=== PATIENT | male | born 1960 | race Two or more races ===

== ENCOUNTER 2022-06-11 10:47 | Emergency (ER) | payer MEDICARE, OTHER ==
[~2022-06-11] VITALS: Ht 182.9 cm; Wt 90.9 kg
[~2022-06-11 10:47] MED LIST: AMOX-462 PO; ASPI-1444 PO; ATOR40TA28 PO; CLOP75TA60 PO; DULO20CA71 PO; HYDR30CR39 TP; IBUP100O27 PO; INSLAN SQ; INSNOV SQ; METF-1211 PO; METO-296 PO; METO25 PO; MORP15 PO; OMEP20 PO; OXYC30TA2 PO; SANTO TP; SIMV-259 PO; TRAZ-257 PO; TYL3 PO
[2022-06-11] MEDS ORDERED: SODIUM CHLORIDE 0.9% 1,000 ML IV ONE (12:30)
[2022-06-11 12:43] LABS: BASOPHILS % (AUTO) 0.8 % (0.0-2.0); HEMATOCRIT 43.8 % (41-53); HEMOGLOBIN 14.9 g/dL (13.5-17.5); LYMPHOCYTES # (AUTO) 1.7 K/uL (1.0-4.8); LYMPHOCYTES % (AUTO) 15.6 % (22.0-44.0); MEAN CORPUSCULAR HEMOGLOBIN 30.2 pg (26.0-34.0); MEAN CORPUSCULAR HGB CONC 33.9 G/dL (31.0-37.0); MEAN CORPUSCULAR VOLUME 89 fL (80-100); MONOCYTES # (AUTO) 0.8 K/uL (0.1-1.0); NEUTROPHILS # (AUTO) 8.2 K/uL (1.8-7.7); NEUTROPHILS % (AUTO) 75.6 % (40.0-70.0); PLATELET COUNT (AUTO) 259 K/uL (150-450); RED BLOOD CELL COUNT(AUTO) 4.92 MIL/uL (4.50-5.90); RED CELL DISTRIBUTION WIDTH 12.8 % (11.5-14.5)
[2022-06-11 12:55] LABS: ANION GAP 7 mmol/L (8-16); CALCIUM, TOTAL 8.9 mg/dL (8.8-10.5); CARBON DIOXIDE 27 mmol/L (22-29); CHLORIDE 99 mmol/L (98-107); CREATININE 0.86 mg/dL (0.60-1.30); GLOMERULAR FILTR. RATE CALC > 60 mL/min (>60); GLUCOSE,RANDOM 385 mg/dL (70-110); POTASSIUM 4.8 mmol/L (3.5-5.1); SODIUM SERUM 133 mmol/L (136-145); UREA NITROGEN, BLOOD 15 mg/dL (7-18)
[2022-06-11 13:09] LABS: ALANINE AMINOTRANSFERASE 53 U/L (12-78); ALBUMIN 3.8 g/dL (3.4-5.0); ALKALINE PHOSPHATASE 128 U/L (46-116); ASPARTATE AMINOTRANSFERASE 34 U/L (15-37); BILIRUBIN,TOTAL 0.8 mg/dL (0.1-1.0); TOTAL PROTEIN, SERUM 7.7 g/dL (6.4-8.2)
[2022-06-11] MEDS ORDERED: INSULIN REGULAR, HUMAN 100 UNITS/ML IVP ONE (13:15)
[2022-06-11 13:56] VITALS: BP 158/89
[2022-06-11 14:11] LABS: GLUCOMETER DEV NAME(LOC) ERT.5; GLUCOSE,POINT OF CARE 303 MG/DL (70-110)
== END 2022-06-11 14:15 | disposition home or self-care (01) ==
LOC: EMS 10:47
DX: E11.65 Type 2 diabetes mellitus with hyperglycemia (principal); E11.40 Type 2 diabetes mellitus with diabetic neuropathy, unspecified; F32.A Depression, unspecified; E78.00 Pure hypercholesterolemia, unspecified; I10 Essential (primary) hypertension; Z89.512 Acquired absence of left leg below knee; Z89.511 Acquired absence of right leg below knee
CPT/HCPCS: 99283; 96374; 96361; 80053; 82962; 85025; 36415; J1815; J7030

== ENCOUNTER 2023-03-26 19:17 | Inpatient (IN) | payer MEDICARE, MEDICAID ==
[~2023-03-26] VITALS: Ht 175.3 cm; Wt 92.1 kg
[2023-03-26 20:31] LABS: GLUCOMETER DEV NAME(LOC) ER.6; GLUCOSE,POINT OF CARE 188 MG/DL (70-110)
[2023-03-26 20:41] LABS: AMPHET/METH SCREEN,URINE NEGATIVE (NEGATIVE); BARBITURATE SCREEN, URINE NEGATIVE (NEGATIVE); BENZODIAZEPINES SCREEN,URINE NEGATIVE (NEGATIVE); CANNABINOID SCREEN,URINE NEGATIVE (NEGATIVE); COCAINE SCREEN,URINE NEGATIVE (NEGATIVE); METHADONE SCREEN, URINE NEGATIVE (NEGATIVE); OPIATE SCREEN,URINE POSITIVE (NEGATIVE); PHENCYCLIDINE SCREEN,URINE NEGATIVE (NEGATIVE)
[2023-03-26 20:41] LABS: BASOPHILS % (AUTO) 0.8 % (0.0-2.0); EOSINOPHILS % (AUTO) 0.7 % (1.0-6.0); HEMOGLOBIN 14.2 g/dL (13.5-17.5); LYMPHOCYTES # (AUTO) 2.2 K/uL (1.0-4.8); MEAN CORPUSCULAR HEMOGLOBIN 29.3 pg (26.0-34.0); MEAN CORPUSCULAR HGB CONC 33.1 G/dL (31.0-37.0); MEAN CORPUSCULAR VOLUME 89 fL (80-100); MONOCYTES # (AUTO) 0.8 K/uL (0.1-1.0); MONOCYTES % (AUTO) 7.5 % (2.0-9.0); NEUTROPHILS # (AUTO) 7.5 K/uL (1.8-7.7); PLATELET COUNT (AUTO) 245 K/uL (150-450); RED BLOOD CELL COUNT(AUTO) 4.85 MIL/uL (4.50-5.90); RED CELL DISTRIBUTION WIDTH 13.2 % (11.5-14.5)
[2023-03-26 20:54] LABS: ANION GAP 8 mmol/L (8-16); CALCIUM, TOTAL 9.1 mg/dL (8.8-10.5); CARBON DIOXIDE 27 mmol/L (22-29); CHLORIDE 103 mmol/L (98-107); CREATININE 0.84 mg/dL (0.60-1.30); GLOMERULAR FILTR. RATE CALC > 60 mL/min (>60); GLUCOSE,RANDOM 218 mg/dL (70-110); POTASSIUM 3.4 mmol/L (3.5-5.1); SODIUM SERUM 138 mmol/L (136-145)
[2023-03-26 21:00] LABS: ALANINE AMINOTRANSFERASE 29 U/L (12-78); ALBUMIN 3.7 g/dL (3.4-5.0); ALKALINE PHOSPHATASE 110 U/L (46-116); ASPARTATE AMINOTRANSFERASE 28 U/L (15-37); BILIRUBIN,TOTAL 0.5 mg/dL (0.1-1.0); TOTAL PROTEIN, SERUM 7.8 g/dL (6.4-8.2)
[2023-03-26 21:06] LABS: COVID AG,FIA SOURCE NASOPHARYNGEAL
[2023-03-26] MEDS ORDERED: OxyCODONE HCL 10 MG ER TABLET PO ONE (21:30)
[2023-03-26] MEDS ORDERED: OxyCODONE HCL 20 MG ER TABLET PO ONE (21:30)
[2023-03-26] MEDS ORDERED: LORazepam 2 MG TABLET PO ONE (23:00)
[2023-03-26] MEDS ORDERED: HALOPERIDOL 5 MG TABLET PO ONE (23:00)
[2023-03-26] MEDS ORDERED: DiphenhydrAMINE HCL 25 MG CAPSULE PO ONE (23:00)
[2023-03-27 01:40] VITALS: BP 140/87
[2023-03-27] MEDS: ZOLPIDEM TARTRATE 10 MG TABLET PO PRN ×2 (01:50→23:11)
[2023-03-27] MEDS ORDERED: MAG HYDROX/AL HYDROX/SIMETH ES 30 ML SUSPENSION UDCUP PO PRN (06:30)
[2023-03-27] MEDS ORDERED: MAGNESIUM HYDROXIDE SUSPENSION 30 ML UDCUP PO PRN (06:30)
[2023-03-27] MEDS ORDERED: CloNIDine HCL 0.1 MG TABLET PO PRN (06:30)
[2023-03-27] MEDS ORDERED: GuaiFENesin/D-METHORPHAN [SUGAR-FREE] 200-20MG/10 ML SYRUP UDCUP PO PRN (06:30)
[2023-03-27] MEDS ORDERED: PETROLATUM,WHITE 28 GM JELLY TP PRN (06:30)
[2023-03-27] MEDS ORDERED: DOCUSATE SODIUM 100 MG CAPSULE PO PRN (06:30)
[2023-03-27] MEDS ORDERED: DEXTROSE 50%-WATER 25 GM/50 ML SYRINGE IVP PRN (06:30)
[2023-03-27] MEDS ORDERED: ALBUTEROL SULFATE HFA 90 MCG/PUFF 8 GM INHALER IH PRN (06:30)
[2023-03-27] MEDS ORDERED: NICOTINE 14 MG/24 HOUR PATCH TD PRN (06:30)
[2023-03-27] MEDS ORDERED: ONDANSETRON HCL 4 MG TABLET PO PRN (06:30)
[2023-03-27] MEDS: INSULIN LISPRO 100 UNITS/ML SQ PRN ×3 (06:33→22:40)
[2023-03-27 06:36] LABS: GLUCOMETER DEV NAME(LOC) 3E.C; GLUCOSE,POINT OF CARE 292 MG/DL (70-110)
[2023-03-27] MEDS ORDERED: OMEPRAZOLE 20 MG CAPSULE PO SCH (09:00)
[2023-03-27 09:13] VITALS: BP 157/79
[2023-03-27] MEDS: SULFAMETHOX/TRIMETH DS 800-160 MG/TABLET PO SCH ×2 (09:58→16:27)
[2023-03-27] MEDS: CLOPIDOGREL BISULFATE 75 MG TABLET PO SCH (09:58)
[2023-03-27] MEDS: CEPHALEXIN MONOHYDRATE 500 MG CAPSULE PO SCH ×3 (09:59→16:27)
[2023-03-27] MEDS: ASPIRIN 81 MG DR TABLET PO SCH (09:59)
[2023-03-27] MEDS: PANTOPRAZOLE SODIUM 40 MG DR TABLET PO SCH (10:01)
[2023-03-27] MEDS: IBUPROFEN 400 MG TABLET PO PRN ×2 (10:01→21:09)
[2023-03-27 11:11] LABS: GLUCOMETER DEV NAME(LOC) 3E.C; GLUCOSE,POINT OF CARE 319 MG/DL (70-110)
[2023-03-27] MEDS: LORazepam 2 MG TABLET PO PRN ×3 (11:24→23:11)
[2023-03-27] MEDS: OxyCODONE HCL 10 MG ER TABLET PO SCH (13:15)
[2023-03-27 17:06] LABS: GLUCOMETER DEV NAME(LOC) 3E.C; GLUCOSE,POINT OF CARE 461 MG/DL (70-110)
[2023-03-27] MEDS ORDERED: INSULIN LISPRO 100 UNITS/ML SQ ONE (17:15)
[2023-03-27] MEDS: DULoxetine HCL 60 MG CAPSULE PO SCH (18:06)
[2023-03-27] MEDS: ATORVASTATIN CALCIUM 40 MG TABLET PO SCH (20:41)
[2023-03-27] MEDS: TraZODone HCL 100 MG TABLET PO SCH (20:41)
[2023-03-27] MEDS ORDERED: SIMVASTATIN 10 MG TABLET PO SCH (21:00)
[2023-03-27 21:06] VITALS: BP 169/109
[2023-03-27 22:51] LABS: GLUCOMETER DEV NAME(LOC) 3E.C; GLUCOSE,POINT OF CARE 382 MG/DL (70-110)
[2023-03-28 05:51] LABS: GLUCOMETER DEV NAME(LOC) 3E.C; GLUCOSE,POINT OF CARE 300 MG/DL (70-110)
[2023-03-28] MEDS: INSULIN LISPRO 100 UNITS/ML SQ PRN ×2 (07:02→21:01)
[2023-03-28 07:18] LABS: HEMOGLOBIN A1C 9.6 % (3.8-5.6)
[2023-03-28 07:20] LABS: CHOL/HDL RATIO 3.4 (4.2-7.3)
[2023-03-28] MEDS: CEPHALEXIN MONOHYDRATE 500 MG CAPSULE PO SCH ×3 (08:22→16:34)
[2023-03-28] MEDS: SULFAMETHOX/TRIMETH DS 800-160 MG/TABLET PO SCH ×2 (08:23→16:34)
[2023-03-28] MEDS: DULoxetine HCL 60 MG CAPSULE PO SCH (08:23)
[2023-03-28] MEDS: CLOPIDOGREL BISULFATE 75 MG TABLET PO SCH (08:23)
[2023-03-28] MEDS: ASPIRIN 81 MG DR TABLET PO SCH (08:23)
[2023-03-28] MEDS: PANTOPRAZOLE SODIUM 40 MG DR TABLET PO SCH (08:25)
[2023-03-28] MEDS: MULTIVITAMINS WITH MINERALS, THERAPEUTIC TABLET PO SCH (08:25)
[2023-03-28 08:35] VITALS: BP 172/92
[2023-03-28] MEDS: OxyCODONE HCL 10 MG ER TABLET PO SCH (09:44)
[2023-03-28 10:12] LABS: POTASSIUM 4.1 mmol/L (3.5-5.1)
[2023-03-28 11:26] LABS: GLUCOMETER DEV NAME(LOC) 3E.I 2; GLUCOSE,POINT OF CARE 468 MG/DL (70-110)
[2023-03-28] MEDS ORDERED: INSULIN GLARGINE,HUM.REC.ANLOG 100 UNITS/ML SQ ONE (11:30)
[2023-03-28] MEDS ORDERED: OXYC15TA2 PO (11:46)
[2023-03-28] MEDS ORDERED: INSU100V12 SQ (11:46)
[2023-03-28] MEDS ORDERED: DULA1.5P SQ (11:46)
[2023-03-28] MEDS ORDERED: PREG50CA63 PO (11:46)
[2023-03-28] MEDS ORDERED: AMLO5TAB66 PO (11:46)
[2023-03-28] MEDS ORDERED: OXYC9CAP PO (11:46)
[2023-03-28] MEDS ORDERED: METF-1185 PO (11:46)
[2023-03-28] MEDS ORDERED: DULO-113 PO (11:46)
[2023-03-28] MEDS: LORazepam 2 MG TABLET PO PRN ×2 (12:19→19:45)
[2023-03-28 16:20] LABS: GLUCOMETER DEV NAME(LOC) 3E.I 2; GLUCOSE,POINT OF CARE 540 MG/DL (70-110)
[2023-03-28 16:35] VITALS: BP 191/102
[2023-03-28] MEDS: IBUPROFEN 400 MG TABLET PO PRN (16:36)
[2023-03-28 16:45] LABS: GLUCOMETER DEV NAME(LOC) 3E.I 2; GLUCOSE,POINT OF CARE 473 MG/DL (70-110)
[2023-03-28] MEDS ORDERED: INSULIN LISPRO 100 UNITS/ML SQ ONE (17:00)
[2023-03-28] MEDS: METOPROLOL TARTRATE 25 MG TABLET PO SCH (18:16)
[2023-03-28 20:00] VITALS: BP 150/80
[2023-03-28] MEDS: TraZODone HCL 100 MG TABLET PO SCH (20:30)
[2023-03-28] MEDS: ATORVASTATIN CALCIUM 40 MG TABLET PO SCH (20:30)
[2023-03-28] MEDS ORDERED: INSULIN GLARGINE,HUM.REC.ANLOG 100 UNITS/ML SQ SCH (21:00)
[2023-03-28 21:01] LABS: GLUCOMETER DEV NAME(LOC) 3E.C; GLUCOSE,POINT OF CARE 358 MG/DL (70-110)
[2023-03-28] MEDS: ACETAMINOPHEN 325 MG TABLET PO PRN (21:41)
[2023-03-28] MEDS: ZOLPIDEM TARTRATE 10 MG TABLET PO PRN (21:41)
[2023-03-28 21:45] VITALS: BP 165/95
[2023-03-28 22:21] VITALS: BP 165/95
[2023-03-29 00:50] VITALS: BP 160/87
[2023-03-29] MEDS: LORazepam 2 MG TABLET PO PRN ×2 (00:50→23:14)
[2023-03-29] MEDS: IBUPROFEN 600 MG TABLET PO PRN ×3 (00:50→19:30)
[2023-03-29 05:45] LABS: APPEARANCE,URINE CLEAR (CLEAR); BILIRUBIN,URINE NEGATIVE (NEGATIVE); GLUCOSE, URINE (UA) NEGATIVE (NEGATIVE); KETONES,URINE NEGATIVE (NEGATIVE); LEUKOCYTE ESTERASE ,URINE NEGATIVE (NEGATIVE); NITRATE,URINE NEGATIVE (NEGATIVE); OCCULT BLOOD,URINE NEGATIVE (NEGATIVE); PH,URINE 5.5 (5.0-8.0); PROTEIN,URINE 30-70 mg/dL (NEGATIVE); SPECIFIC GRAVITIY, URINE 1.011 (1.003-1.030); UROBILINOGEN,URINE <=1.0 mg/dL (<=1.0)
[2023-03-29 05:46] LABS: BACTERIA,URINE None Seen /HPF (None Seen); RBC,URINE None Seen /HPF (0-2); SQUAMOUS EPITHELIAL CELL,UR None Seen /LPF (None Seen); WBC,URINE None Seen /HPF (0-5)
[2023-03-29 05:48] LABS: AMPHET/METH SCREEN,URINE NEGATIVE (NEGATIVE); BARBITURATE SCREEN, URINE NEGATIVE (NEGATIVE); BENZODIAZEPINES SCREEN,URINE NEGATIVE (NEGATIVE); CANNABINOID SCREEN,URINE NEGATIVE (NEGATIVE); COCAINE SCREEN,URINE NEGATIVE (NEGATIVE); METHADONE SCREEN, URINE NEGATIVE (NEGATIVE); OPIATE SCREEN,URINE NEGATIVE (NEGATIVE); PHENCYCLIDINE SCREEN,URINE NEGATIVE (NEGATIVE)
[2023-03-29 06:26] LABS: GLUCOMETER DEV NAME(LOC) 3E.C; GLUCOSE,POINT OF CARE 294 MG/DL (70-110)
[2023-03-29] MEDS: MetFORMIN HCL 850 MG TABLET PO SCH ×3 (07:04→16:35)
[2023-03-29] MEDS: ASPIRIN 81 MG DR TABLET PO SCH (08:37)
[2023-03-29] MEDS: PANTOPRAZOLE SODIUM 40 MG DR TABLET PO SCH (08:38)
[2023-03-29] MEDS: MULTIVITAMINS WITH MINERALS, THERAPEUTIC TABLET PO SCH (08:38)
[2023-03-29] MEDS: OxyCODONE HCL 10 MG ER TABLET PO SCH (08:38)
[2023-03-29] MEDS: CLOPIDOGREL BISULFATE 75 MG TABLET PO SCH (08:38)
[2023-03-29] MEDS: SULFAMETHOX/TRIMETH DS 800-160 MG/TABLET PO SCH ×2 (08:38→16:01)
[2023-03-29] MEDS: CEPHALEXIN MONOHYDRATE 500 MG CAPSULE PO SCH ×3 (08:38→16:01)
[2023-03-29] MEDS: METOPROLOL TARTRATE 25 MG TABLET PO SCH ×2 (08:38→16:01)
[2023-03-29] MEDS: PREGABALIN 50 MG CAPSULE PO SCH ×2 (08:38→16:01)
[2023-03-29] MEDS: DULoxetine HCL 60 MG CAPSULE PO SCH (08:39)
[2023-03-29] MEDS: AmLODIPine BESYLATE 2.5 MG TABLET PO SCH (08:39)
[2023-03-29] MEDS: INSULIN GLARGINE,HUM.REC.ANLOG 100 UNITS/ML SQ SCH ×2 (08:59→16:48)
[2023-03-29] MEDS ORDERED: AmLODIPine BESYLATE 5 MG TABLET PO SCH (09:00)
[2023-03-29 09:03] VITALS: BP 129/77
[2023-03-29 11:26] LABS: GLUCOMETER DEV NAME(LOC) 3E.C; GLUCOSE,POINT OF CARE 323 MG/DL (70-110)
[2023-03-29] MEDS: INSULIN LISPRO 100 UNITS/ML SQ PRN ×3 (12:00→21:04)
[2023-03-29 17:01] LABS: GLUCOMETER DEV NAME(LOC) 3E.C; GLUCOSE,POINT OF CARE 268 MG/DL (70-110)
[2023-03-29 19:27] VITALS: BP 148/92
[2023-03-29 20:56] LABS: GLUCOMETER DEV NAME(LOC) 3E.C; GLUCOSE,POINT OF CARE 259 MG/DL (70-110)
[2023-03-29] MEDS: ATORVASTATIN CALCIUM 40 MG TABLET PO SCH (21:06)
[2023-03-29] MEDS: TraZODone HCL 100 MG TABLET PO SCH (21:07)
[2023-03-29] MEDS: ZOLPIDEM TARTRATE 10 MG TABLET PO PRN (22:05)
[2023-03-30 06:31] LABS: GLUCOMETER DEV NAME(LOC) 3E.C; GLUCOSE,POINT OF CARE 272 MG/DL (70-110)
[2023-03-30 06:32] VITALS: BP 148/86
[2023-03-30] MEDS: MetFORMIN HCL 850 MG TABLET PO SCH ×3 (06:33→16:27)
[2023-03-30] MEDS: IBUPROFEN 600 MG TABLET PO PRN ×2 (06:34→14:46)
[2023-03-30] MEDS: INSULIN LISPRO 100 UNITS/ML SQ PRN ×4 (06:34→21:19)
[2023-03-30 08:00] VITALS: BP 121/70
[2023-03-30] MEDS: CEPHALEXIN MONOHYDRATE 500 MG CAPSULE PO SCH ×3 (08:32→16:28)
[2023-03-30] MEDS: CLOPIDOGREL BISULFATE 75 MG TABLET PO SCH (08:32)
[2023-03-30] MEDS: SULFAMETHOX/TRIMETH DS 800-160 MG/TABLET PO SCH ×2 (08:33→16:27)
[2023-03-30] MEDS: METOPROLOL TARTRATE 25 MG TABLET PO SCH ×2 (08:33→16:28)
[2023-03-30] MEDS: AmLODIPine BESYLATE 2.5 MG TABLET PO SCH (08:33)
[2023-03-30] MEDS: ASPIRIN 81 MG DR TABLET PO SCH (08:33)
[2023-03-30] MEDS: DULoxetine HCL 60 MG CAPSULE PO SCH (08:34)
[2023-03-30] MEDS: MULTIVITAMINS WITH MINERALS, THERAPEUTIC TABLET PO SCH (08:36)
[2023-03-30] MEDS: OxyCODONE HCL 10 MG ER TABLET PO SCH (08:36)
[2023-03-30] MEDS: PREGABALIN 50 MG CAPSULE PO SCH ×2 (08:36→16:29)
[2023-03-30] MEDS: PANTOPRAZOLE SODIUM 40 MG DR TABLET PO SCH (08:36)
[2023-03-30] MEDS: INSULIN GLARGINE,HUM.REC.ANLOG 100 UNITS/ML SQ SCH ×2 (09:36→16:53)
[2023-03-30] MEDS: LOPERAMIDE HCL 2 MG CAPSULE PO PRN ×3 (10:45→16:30)
[2023-03-30 11:56] LABS: GLUCOMETER DEV NAME(LOC) 3E.I 2; GLUCOSE,POINT OF CARE 248 MG/DL (70-110)
[2023-03-30 16:41] LABS: GLUCOMETER DEV NAME(LOC) 3E.I 2; GLUCOSE,POINT OF CARE 395 MG/DL (70-110)
[2023-03-30] MEDS: LORazepam 2 MG TABLET PO PRN (20:42)
[2023-03-30 20:51] LABS: GLUCOMETER DEV NAME(LOC) 3E.C; GLUCOSE,POINT OF CARE 200 MG/DL (70-110)
[2023-03-30 20:57] VITALS: BP 148/88
[2023-03-30] MEDS: ATORVASTATIN CALCIUM 40 MG TABLET PO SCH (20:58)
[2023-03-30] MEDS: TraZODone HCL 100 MG TABLET PO SCH (20:58)
[2023-03-31 06:56] LABS: GLUCOMETER DEV NAME(LOC) 3E.C; GLUCOSE,POINT OF CARE 208 MG/DL (70-110)
[2023-03-31] MEDS: MetFORMIN HCL 850 MG TABLET PO SCH ×3 (06:57→17:32)
[2023-03-31 07:00] VITALS: BP 136/90
[2023-03-31] MEDS: INSULIN LISPRO 100 UNITS/ML SQ PRN ×4 (07:02→21:42)
[2023-03-31] MEDS: IBUPROFEN 600 MG TABLET PO PRN (07:05)
[2023-03-31 08:05] VITALS: BP 127/70
[2023-03-31] MEDS: PREGABALIN 50 MG CAPSULE PO SCH ×2 (08:44→17:57)
[2023-03-31] MEDS: MULTIVITAMINS WITH MINERALS, THERAPEUTIC TABLET PO SCH (08:44)
[2023-03-31] MEDS: PANTOPRAZOLE SODIUM 40 MG DR TABLET PO SCH (08:44)
[2023-03-31] MEDS: OxyCODONE HCL 10 MG ER TABLET PO SCH (08:44)
[2023-03-31] MEDS: METOPROLOL TARTRATE 25 MG TABLET PO SCH ×2 (08:45→17:33)
[2023-03-31] MEDS: DULoxetine HCL 60 MG CAPSULE PO SCH (08:46)
[2023-03-31] MEDS: ASPIRIN 81 MG DR TABLET PO SCH (08:46)
[2023-03-31] MEDS: SULFAMETHOX/TRIMETH DS 800-160 MG/TABLET PO SCH ×2 (08:46→17:32)
[2023-03-31] MEDS: CLOPIDOGREL BISULFATE 75 MG TABLET PO SCH (08:47)
[2023-03-31] MEDS: AmLODIPine BESYLATE 2.5 MG TABLET PO SCH (08:48)
[2023-03-31] MEDS: CEPHALEXIN MONOHYDRATE 500 MG CAPSULE PO SCH ×3 (08:49→17:32)
[2023-03-31] MEDS: INSULIN GLARGINE,HUM.REC.ANLOG 100 UNITS/ML SQ SCH ×2 (09:17→17:57)
[2023-03-31 09:26] LABS: GLUCOMETER DEV NAME(LOC) 3E.C; GLUCOSE,POINT OF CARE 347 MG/DL (70-110)
[2023-03-31] MEDS: HALOPERIDOL 5 MG TABLET PO PRN (10:56)
[2023-03-31] MEDS: LORazepam 2 MG TABLET PO PRN (10:56)
[2023-03-31 12:11] LABS: GLUCOMETER DEV NAME(LOC) 3E.C; GLUCOSE,POINT OF CARE 339 MG/DL (70-110)
[2023-03-31 16:51] LABS: GLUCOMETER DEV NAME(LOC) 3E.I 2; GLUCOSE,POINT OF CARE 270 MG/DL (70-110)
[2023-03-31] MEDS: ATORVASTATIN CALCIUM 40 MG TABLET PO SCH (20:03)
[2023-03-31] MEDS: TraZODone HCL 100 MG TABLET PO SCH (20:03)
[2023-03-31 20:41] LABS: GLUCOMETER DEV NAME(LOC) 3E.C; GLUCOSE,POINT OF CARE 283 MG/DL (70-110)
[2023-03-31 21:11] VITALS: BP 135/70
[2023-03-31] MEDS: ZOLPIDEM TARTRATE 10 MG TABLET PO PRN (22:14)
[2023-04-01 00:20] VITALS: BP 155/74
[2023-04-01] MEDS: LORazepam 2 MG TABLET PO PRN (00:20)
[2023-04-01] MEDS: IBUPROFEN 600 MG TABLET PO PRN (00:21)
[2023-04-01] MEDS: HALOPERIDOL 5 MG TABLET PO PRN (00:21)
[2023-04-01 06:26] LABS: GLUCOMETER DEV NAME(LOC) 3E.C; GLUCOSE,POINT OF CARE 300 MG/DL (70-110)
[2023-04-01] MEDS: MetFORMIN HCL 850 MG TABLET PO SCH ×2 (06:40→12:03)
[2023-04-01] MEDS: INSULIN LISPRO 100 UNITS/ML SQ PRN ×2 (06:41→12:03)
[2023-04-01] MEDS: ACETAMINOPHEN 325 MG TABLET PO PRN (07:19)
[2023-04-01 07:22] VITALS: BP 144/78
[2023-04-01] MEDS: DULoxetine HCL 60 MG CAPSULE PO SCH (08:10)
[2023-04-01] MEDS: CEPHALEXIN MONOHYDRATE 500 MG CAPSULE PO SCH ×2 (08:10→13:06)
[2023-04-01] MEDS: SULFAMETHOX/TRIMETH DS 800-160 MG/TABLET PO SCH (08:10)
[2023-04-01] MEDS: ASPIRIN 81 MG DR TABLET PO SCH (08:10)
[2023-04-01] MEDS: METOPROLOL TARTRATE 25 MG TABLET PO SCH (08:11)
[2023-04-01] MEDS: AmLODIPine BESYLATE 2.5 MG TABLET PO SCH (08:11)
[2023-04-01] MEDS: CLOPIDOGREL BISULFATE 75 MG TABLET PO SCH (08:11)
[2023-04-01] MEDS: MULTIVITAMINS WITH MINERALS, THERAPEUTIC TABLET PO SCH (08:13)
[2023-04-01] MEDS: PANTOPRAZOLE SODIUM 40 MG DR TABLET PO SCH (08:13)
[2023-04-01] MEDS: PREGABALIN 50 MG CAPSULE PO SCH (08:13)
[2023-04-01] MEDS: OxyCODONE HCL 10 MG ER TABLET PO SCH (08:14)
[2023-04-01 08:48] VITALS: BP 160/74
[2023-04-01] MEDS: INSULIN GLARGINE,HUM.REC.ANLOG 100 UNITS/ML SQ SCH (08:48)
[2023-04-01] MEDS ORDERED: PREG50 PO (10:33)
[2023-04-01] MEDS ORDERED: TRAZ-257 PO (10:33)
[2023-04-01] MEDS ORDERED: ATOR40TA71 PO (10:33)
[2023-04-01] MEDS ORDERED: PANT-31 PO (10:33)
[2023-04-01] MEDS ORDERED: METO25 PO (10:33)
[2023-04-01] MEDS ORDERED: METF-1185 PO (10:33)
[2023-04-01] MEDS ORDERED: MULT-1239 PO (10:33)
[2023-04-01] MEDS ORDERED: DULO-113 PO (10:33)
[2023-04-01] MEDS ORDERED: ASPI-1444 PO (10:33)
[2023-04-01] MEDS ORDERED: CLOP75TA60 PO (10:33)
[2023-04-01] MEDS ORDERED: AMLO2.5T96 PO (10:33)
[2023-04-01] MEDS ORDERED: BACTDSB PO (11:23)
[2023-04-01 12:07] LABS: GLUCOMETER DEV NAME(LOC) 3E.C; GLUCOSE,POINT OF CARE 194 MG/DL (70-110)
== END 2023-04-01 16:21 | disposition home or self-care (01) | DRG 885 ==
LOC: EMS 19:18 → 3EX 03-27 00:41
PROVIDERS: ADMIT Psychiatry & Neurology Psychiatry; ATTEND Psychiatry & Neurology Psychiatry
DX: F33.2 Major depressive disorder, recurrent severe without psychotic features (principal); E11.65 Type 2 diabetes mellitus with hyperglycemia; L03.90 Cellulitis, unspecified; R45.851 Suicidal ideations; Z20.822 Contact with and (suspected) exposure to COVID-19; E87.6 Hypokalemia; E78.00 Pure hypercholesterolemia, unspecified; F41.9 Anxiety disorder, unspecified; K21.9 Gastro-esophageal reflux disease without esophagitis; I10 Essential (primary) hypertension; E11.40 Type 2 diabetes mellitus with diabetic neuropathy, unspecified; G47.00 Insomnia, unspecified; G89.29 Other chronic pain; Z79.899 Other long term (current) drug therapy; Z89.511 Acquired absence of right leg below knee; Z89.512 Acquired absence of left leg below knee; Z79.82 Long term (current) use of aspirin
CPT/HCPCS: 80053; 80061; 80307; 81001; 82962; 83036; 84132; 85025; 99285; G0378; G0480; J1815